=== PATIENT | male | born 1960 | race Caucasian/White ===

== ENCOUNTER 2017-01-06 15:24 | Emergency (ER) | payer MEDICAID ==
[~2017-01-06] VITALS: Ht 172.7 cm; Wt 75.0 kg
[~2017-01-06 15:24] MED LIST: BACT800T5 PO; CEPH500C3 PO; SEIZURE MED PO
[2017-01-06 15:26] VITALS: BP 132/83; PULSE 114; RESP 14; TEMP 99.1; O2SAT 97
--- NOTE | 2017-01-06 15:45 | PD ---
HPI . laceration right calf x 5 days Chief Complaint: Skin Problem Time Seen by Provider: 15:45 Travel History International Travel<30 days: No Contact w/Intl Traveler<30days: No Traveled to known affect area: No History of Present Illness HPI 56-year-old male with tobaccoism here with complaints of a laceration to his right calf he sustained Tuesday while working outside. Patient tells me that he is been taking care of this at home and wanted to have it checked. He denies any fever, chills, pus drainage or streaking. He has slight pain to the area, but otherwise doing okay. He does not know the date of his last tetanus. PFSH Past Medical History Depression: Yes Cardiac Catheterization: No Cardiovascular Problems: Yes Diabetes: No Diminished Hearing: Yes (LEFT EAR) Hypertension: Yes Immunizations Current: Yes Migraines: Yes Seizures: Yes Thyroid Disease: Yes (HYPERTHYROIDISM) Past Surgical History Body Medical Devices: PLATE IN LEFT SIDE OF HEAD Coronary Artery Bypass Graft: No Neurologic Surgery: Yes (HEAD INJURY 2000 (ASSAULT) HAS "METAL PLATE IN HEAD".) Other Surgery: Yes (BRAIN SURG WITH PLATE IN LEFT SIDE OF HEADLEFT MIDDLE FINGER PARTIAL AMPUTA) Social History Alcohol Use: Yes (4 PACK/DAILY) Tobacco Use: Yes (1PPD) Substance Use: No (ROSSY LAST USED 1982) Allergies-Medications (Allergen,Severity, Reaction): Coded Allergies: *MDRO Multi-Drug Resistant Organism (Verified Adverse Reaction, Unknown, ) 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 Reported Meds & Prescriptions Reported Meds & Active Scripts Active Keflex (Cephalexin Monohydrate) 500 Mg Cap 500 Mg PO QID Bactrim DS (Sulfamethoxazole-Trimethoprim DS) 1 Tab Tab 1 Tab PO BID 10 Days Reported [Seizure Med] 100 Mg PO TID Review of Systems General / Constitutional: No: Fever Eyes: No: Visual changes HENT: No: Headaches Cardiovascular: No: Chest Pain or Discomfort Respiratory: No: Shortness of Breath Gastrointestinal: No: Abdominal Pain Genitourinary: No: Dysuria Musculoskeletal: No: Pain Skin: Positive Other (right calf wound ), No Rash Neurologic: No: Weakness Psychiatric: No: Depression Endocrine: No: Polydipsia Hematologic/Lymphatic: No: Easy Bruising Physical Exam Narrative GENERAL: AAO x 3, no acute distress, Well-nourished, well-developed patient. SKIN: Warm and dry. No visible rashes or bruising. right calf 2cm x 1 cm wound healing well by secondary intention, no significant erythema, edema, purulence, streaking or evidence of infection HEAD: Normocephalic and atraumatic. EYES: No scleral icterus. No injection or drainage. ENT: No nasal drainage noted. Mucous membranes pink. Airway patent. NECK: Supple, trachea midline. No JVD. CARDIOVASCULAR: Regular rate and rhythm without murmurs, gallops, or rubs. HR on exam 92 RESPIRATORY: Breath sounds equal bilaterally. No accessory muscle use. No rhonchi or rales. GASTROINTESTINAL: Visual inspection normal EXTREMITIES: No cyanosis or edema. BACK: No obvious deformity. NEURO: CN II-12 intact, post office clerk strength normal b/l, UE and LE 5/5, no focal deficits PSYCH: AAO x 3, normal affect. Data Data Last Documented VS Vital Signs Date Time Temp Pulse Resp B/P Pulse Ox O2 Delivery O2 Flow Rate FiO2 01/06/17 15:26 99.1 114 14 132/83 97 Room Air Orders Tetanus/Diphtheria Tox Adult (Tetanus/Di (01/06/17 16:00) MDM Medical Decision Making Medical Screen Exam Complete: Yes Emergency Medical Condition: Yes Medical Record Reviewed: Yes Differential Diagnosis Healing wound, foreign body, less likely cellulitis Narrative Course 56-year-old male here with a old healing laceration to the right calf. There is no evidence of infection. Patient needs a tetanus shot, which I will administer here in the ED. I advised him to continue general wound care at home. We discussed signs of infection and when to return to the ED. HR recheck by Joseline technology applications teacher 86 Patient verbalized understanding of instructions, questions were answered, and thanked me for their care. I advised them if their condition worsens, please return to the nearest emergency room for further care. Diagnosis Primary Impression: Healing wound Patient Instructions: General Instructions Additional Instructions: Keep area clean and dry. Watch for signs of infection: fever, redness, swelling, warmth, pus or drainage , red streaks around the cut, and increased pain from the area. If you received a tetanus shot, you may experience tenderness at the injection site. This is normal. Med/Other Pt SpecificInfo: No Change to Meds Disposition: 01 DISCHARGE HOME Condition: Stable Zuleika Sam Jan 06, 2017 15:45
[2017-01-06] MEDS ORDERED: TETANUS/DIPHTHERIA TOXOID ADULT 0.5 ML VIAL IM ONE (16:00)
== END 2017-01-06 16:35 | disposition home or self-care (01) ==
LOC: NEPK 15:24
DX: S81.811A Laceration without foreign body, right lower leg, initial encounter (principal); X58.XXXA Exposure to other specified factors, initial encounter; Z23 Encounter for immunization
CPT/HCPCS: 90471; 90714